=== PATIENT | female | born 1980 | race Caucasian/White ===

== ENCOUNTER → 2017-08-01 11:29 | Outpatient (CLI) | payer OTHER, SELFPAY ==
[2017-08-01 11:59] LABS: Ferritin 27 ng/mL (8-252); Iron 71 ug/dL (50-170)
== END ==
PROVIDERS: Family Provider Student in an Organized Health Care Education/Training Program; PCP Student in an Organized Health Care Education/Training Program; Visit Provider Obstetrics & Gynecology
DX: R53.83 Other fatigue (principal)
CPT/HCPCS: 82728; 83540

== ENCOUNTER → 2018-06-11 11:43 | Outpatient (CLI) | payer OTHER, SELFPAY ==
[2018-06-05 11:09] VITALS: BMI 22.6
[2018-06-11 11:56] LABS: Magnesium 1.9 mg/dL (1.6-2.6)
== END ==
PROVIDERS: PCP Student in an Organized Health Care Education/Training Program; Visit Provider Internal Medicine Cardiovascular Disease
DX: I49.3 Ventricular premature depolarization (principal)
CPT/HCPCS: 83735

== ENCOUNTER → 2018-07-14 12:28 | Outpatient (CLI) | payer OTHER, SELFPAY ==
[2018-06-05 11:09] VITALS: BMI 22.6
--- NOTE | 2018-07-14 12:31 | STE_ITS ---
Reason For Study: PALPITATIONS, SOB Stress Results Protocol: Stress Echocardiogram Maximum Predicted HR: 184 bpm Target HR: 156 bpm % Maximum Predicted HR: 94 % DurationHeart Rate Stage (mm:ss) (bpm) BP Comment BASELINE 81 134/78 ANDREW PROTOCOL- STAGE 1 3:00 136 134/80 ANDREW PROTOCOL- STAGE 2 3:00 153 130/64 ANDREW PROTOCOL- STAGE 3 3:00 173 144/76SL SOB MY ASTHMA RECOVERY 86 118/68 Stress Duration: 9:00 mm:ss Maximum Stress HR: 173 bpm METS: 10 Baseline Echocardiogram Findings Stress Echo Wall motion Data Resting WM Intermediate WM Stress WM Resting Wall Motion Wall Motion Stress All segments Normal. All segments Hyperkinetic. Ejection Fraction 65 %. Ejection Fraction 75 %. Stress Results Heart rate response: appropriate Blood pressure response: normal resting BP - appropriate response Arrhythmias: none Functional capacity: good Stopped secondary to: dyspnea. EKG Data Baseline ECG: NSR. Peak exercise ECG: no obvious ECG changes. Symptoms with Stress No c/o chest discomfort or palpitations during exercise / recovery. Interpretation Summary Negative (adequate) Stress Echocardiogram Negative (adequate) ECG ETT Ordering Physician: Luciano Guzmán MD Referring Physician: LISA BULL Performed By: [place] RDCS, RVT
--- OUTSIDE RECORDS SUMMARY | 2018-09-15 16:16 | XMS RPT_ITS ---
:1980 Author Organization OHIP Support Name Relationship Address Phone MONIE CH Unavailable [address] + [place] [address] LINDSEY TONEY Unavailable [address] + [place] [address] [facility] Unavailable [address] + [place] [address] MONIE CH Unavailable [address] + [place] [address] LINDSEY TONEY Unavailable [address] + [place] [address] [facility] Unavailable [address] + [place] [address] Monie Ch Unavailable [address] + [place] [address] Lindsey Toney Unavailable [address] + [place] [address] [facility] Unavailable [address] + [place] [address] Monie Ch Unavailable [address] + [place] [address] YarelisLindsey alfred Unavailable [address] + [place] [address] [facility] Unavailable [address] + [place] [address] Monie Ch Unavailable [address] + [place] [address] Yarelisaubrie Lindsey Unavailable [address] + [place] [address] [facility] Unavailable [address] + [place] [address] Mesa, Monie Unavailable [address] + [place] [address] Lindsey Toney Unavailable [address] + [place] [address] [facility] Unavailable [address] + [place] [address] Jing, Monie Unavailable [address] + [place] [address] Lindsey Toney Unavailable [address] + [place] [address] [facility] Unavailable [address] + [place] [address] Jing, Monie Unavailable [address] + [place] [address] Lindsey Toney Unavailable [address] + [place] [address] [facility] Unavailable [address] + [place] [address] Mesa, Monie Unavailable [address] + [place] [address] Lindsey Toney Unavailable [address] + [place] [address] [facility] Unavailable [address] + [place] [address] Care Team Providers Name Role Phone CAPRICE SILVER (CN) Attending Unavailable Laurie Johnson Attending Unavailable Luciano Guzmán Attending Unavailable Gregory, Cedrick Referring Unavailable [facility] Employee Attending Unavailable Luciano Guzmán Attending Unavailable [facility] Primary Care Unavailable Luciano Guzmán Attending Unavailable Luciano Guzmán Referring Unavailable Bull, Cedrick Primary Care Unavailable Augusto Martinez Attending Unavailable Bull, Cedrick Referring Unavailable [facility] Employee Attending Unavailable Catina Leonardo Attending Unavailable Bull, Cedrick Primary Care Unavailable Catina Leonardo Referring Unavailable Luciano Guzmán Attending Unavailable Luciano Guzmán Referring Unavailable Bull, Cedrick Primary Care Unavailable PROBLEMS PROBLEMS DATE TYPE CONDITION / CODE ATTENDING STATUS SOURCE 06/11/2018 Unknown I49.3 - Ventricular Luciano Guzmán Active [place] [facility] I49.3(ICD-10) Repository 06/05/2018 Unknown R00.2 - Palpitations Luciano Guzmán Active [place] / R00.2(ICD-10) [facility] Repository 06/05/2018 Unknown R06.02 - Shortness Luciano Guzmán Active [place] [facility] R06.02(ICD-10) Hospital Repository 08/02/2017 Unknown R53.1 - Weakness / Jorden, Active [place] R53.1(ICD-10) [facility] Repository PROCEDURES PROCEDURES No Procedure Records FoundRESULTS RESULTS STRESS TEST ECHO W/O Observed: 07/14/2018 Status: F Source: [place] CONTRAST 8:37 PM [facility] REPOSITORY [facility] [address] [place] [address] Stress Test Echo w/o Contrast MR#: [id number] Acct: [id number] Name: JAZMYN CH Rep #: [id number] : 1980 37 From: Luciano uGzmán MD Primary Care: Cedrick Muñoz DO Status: REG CLI Ordering Dr: Luciano Guzmán MD Sex: F C Reason For Study: PALPITATIONS, SOB Stress Results Protocol: Stress Echocardiogram Maximum Predicted HR: 184 bpm Target HR: 156 bpm % Maximum Predicted HR: 94 % DurationHeart Rate Stage (mm:ss) (bpm) BP Comment BASELINE 81 134/78 BALJIT PROTOCOL- STAGE 1 3:00 136 134/80 BALJIT PROTOCOL- STAGE 2 3:00 153 130/64 BALJIT PROTOCOL- STAGE 3 3:00 173 144/76SL SOB MY ASTHMA RECOVERY 86 118/68 Stress Duration: 9:00 mm:ss Maximum Stress HR: 173 bpm METS: 10 Baseline Echocardiogram Findings Stress Echo Wall motion Data Resting WM Intermediate WM Stress WM Resting Wall Motion Wall Motion Stress All segments Normal. All segments Hyperkinetic. Ejection Fraction 65 %. Ejection Fraction 75 %. Stress Results Heart rate response: appropriate Blood pressure response: normal resting BP - appropriate response Arrhythmias: none Functional capacity: good Stopped secondary to: dyspnea. EKG Data Baseline ECG: NSR. Peak exercise ECG: no obvious ECG changes. Symptoms with Stress No c/o chest discomfort or palpitations during exercise / recovery. Interpretation Summary Negative (adequate) Stress Echocardiogram Negative (adequate) ECG ETT Ordering Physician: Luciano Gumzán MD Referring Physician: CEDRICK BULL Performed By: [place], MARKUSCS, RVT 07/14/182036 Date Luciano Guzmán MD CC: Cedrick Muñoz DO; Luciano Guzmán MD Date Dictated: 07/14/18 1243 Date Transcribed: 07/14/182036 Nsh Teacher: Signed MAGNESIUM Collected: 06/11/2018 Status: F Source: [place] 8:30 AM [facility] REPOSITORY TYPE CODE TESTS RESULT OUT OF RANGE REFERENCE UNITS LAB L501.5200 1.6-2.6 mg/dL Normal MG 1.9 Performed By: #### L501.5200 #### [facility] [address] [place], [address] BASIC METABOLIC Collected: 06/11/2018 Status: F Source: [place] PROFILE (BMP) 8:30 AM [facility] REPOSITORY TYPE CODE TESTS RESULT OUT OF RANGE REFERENCE UNITS LAB L501.0100 74-106 mg/dL Normal GLU 100 Result Comment: Fasting Glucose result from 100 to 125 mg/dL suggests IMPAIRED HOMEOSTASIS per A.D.A. criteria. Please note revised GLUCOSE reference range effective 2017. LAB L501.1000 7-18 mg/dL High BUN 19 LAB L501.1100 0.55-1.02 mg/dL Normal CREAT,SERUM 0.81 Result Comment: The validity of the calculated GFR AND GFRAA in patients over 70 years has not been determined. Clinical correlation is essential. LAB L501.1110 >60 mL/min Normal EST GFR 85 Result Comment: Non- GFR Calc LAB L501.1115 >60 mL/min Normal EST GFR - AA 103 Result Comment: GFR Calc LAB L501.1300 10-20 RATIO High BUN/CRE 23.5 LAB L501.2200 8.5-10.1 mg/dL CA Normal 8.7 LAB L501.5300 136-145 mmol/L NA Normal 140 LAB L501.5600 3.5-5.1 mmol/L K Normal 3.9 LAB L501.5900 98-107 mmol/L High CL 109 LAB L501.6100 21.0-32.0 mmol/L Normal CO2 24.0 LAB L501.6200 5-15 Normal GAP 7 Performed By: #### L500.2500, L500.4100, L501.9310, L501.9520, L506.0400 #### [facility] [address] [place], [address] LIPID PROFILE Collected: 06/11/2018 Status: F Source: [place] 8:30 AM [facility] REPOSITORY TYPE CODE TESTS RESULT OUT OF RANGE REFERENCE UNITS LAB L501.4900 200 mg/dL Normal CHOL 157 Result Comment: <200 mg/dL Desirable 200-240 mg/dL Borderline >240 mg/dL High Risk LAB L501.5000 mg/dL Normal TRIG 41 Result Comment: The drugs N-Acetylcysteine and Metamizole may falsely depress this assay. Serum Triglycerides Reference Interval Normal <150 mg/dL Borderline high 150 - 199 mg/dL High 200 - 499 mg/dL Very High > or = 500 mg/dL LAB L501.6400 mg/dL Normal HDL 68 Result Comment: The drugs N-Acetylcysteine and Metamizole may falsely depress this assay. Reference Range HDL <40 mg/dL Low HDL Cholesterol HDL >or= 60 mg/dL High HDL Cholesterol LAB L501.6500 0-130 mg/dL Normal LDL 81 LAB L501.6600 5-40 mg/dL Normal VLDL 8 Performed By: #### L500.2500, L500.4100, L501.9310, L501.9520, L506.0400 #### [facility] [address] [place], [address] T4 TOTAL, THYROXIN Collected: 06/11/2018 Status: F Source: [place] 8:30 AM [facility] REPOSITORY TYPE CODE TESTS RESULT OUT OF RANGE REFERENCE UNITS LAB L501.9310 4.8-13.9 ug/dL T4 Normal THYROXIN 6.9 Performed By: #### L500.2500, L500.4100, L501.9310, L501.9520, L506.0400 #### [facility] [address] [place], [address] THYROID STIM HORMONE Collected: 06/11/2018 Status: F Source: [place] (TSH) 8:30 AM [facility] REPOSITORY TYPE CODE TESTS RESULT OUT OF RANGE REFERENCE UNITS LAB L501.9520 0.358-3.74 uIU/mL Normal TSH 3.07 Performed By: #### L500.2500, L500.4100, L501.9310, L501.9520, L506.0400 #### [facility] [address] [place], [address] T4 FREE DIRECT Collected: 06/11/2018 Status: F Source: [place] 8:30 AM [facility] REPOSITORY TYPE CODE TESTS RESULT OUT OF RANGE REFERENCE UNITS LAB L506.0400 0.76-1.46 ng/dL Normal T4 FREE 0.93 DIRECT Performed By: #### L500.2500, L500.4100, L501.9310, L501.9520, L506.0400 #### [facility] [address] [place], [address] CARDIOLOGY VISIT Observed: 06/05/2018 Status: F Source: [place] REPORT 12:50 PM [facility] REPOSITORY [facility] [place] [address] OFFICE VISIT Date of Service: 06/05/18 MR#: [id number] Acct: [id number] Name: JAZMYN CH Rep #: [id number] : 1980 Provider: Luciano Guzmán MD Age/Sex: 37/F Location: [facility] Status: Signed HPI HPI Details: JAZMYN CH, is a 37 F who presents to the office today for Outpatient cardiovascular consultation based upon concerns of recurrent palpitations. She was previously evaluated as an outpatient in 2013. She has not been evaluated since that time. At that time she was being evaluated for concerns of palpitations and chest discomfort. She underwent a Holter monitor, a 30 day ambulatory event monitor, a transthoracic echocardiogram, and a stress echocardiogram. At that time her Holter monitor demonstrated underlying sinus rhythm with PACs and PVCs with no narrow wide complex runs. Her 30 day event monitor demonstrated occasional PVCs. Her transthoracic echocardiogram demonstrates the left ventricle to be normal with an LVEF of 60% with a mid cavitary false tendon with equivocal mitral valve prolapse with trivial MR and trivial TR. Her stress echocardiogram demonstrated she exercised for 12 minutes on the Baljit protocol achieving 99% predicted maximal heart rate with a peak blood pressure of 170/90 mmHg with no obvious dysrhythmias, no obvious ECG changes, and no echocardiographic evidence of inducible myocardial ischemia. She had no symptoms during her evaluation. Her exercise tolerance was considered excellent at that time. She continued with an observational approach. She notes that on May 26, 2018 she had recurrent palpitations. She felt her heart flip-flop . She had no near syncope or syncope. She had no obvious associated chest discomfort or difficulty breathing. She elected to arrange an outpatient cardiovascular followup appointment. Since that time she states she has had no recurrent palpitations. She has continued with her activity as tolerated. Today she had an ECG in the office. She was noted to be in sinus bradycardia with no acute ECG changes. This is not new for her. Also today in the office she had a cardiac murmur. In comparison to her previous examination from 2013 this appears to be without significant change. Intake Vital Signs06/05/18 Height 5 ft 4 in 06/05/18 Weight: 132 lb 06/05/18 Body Mass Index (BMI) 22.6 06/05/18 Blood Pressure 112/60 Intake Visit Reasons: palps/ SOB/ former pt 2013/ no current tests Allergies No Known Allergies Allergy (Verified 06/05/18 11:09) Medications Ibuprofen [Motrin] 600 mg PO Q6H PRN #60 tab 10/17/16 [Rx Confirmed 06/05/18] albuterol sulfate HFA 90 mcg/actuation aerosol inhaler 1 puff INHALATION Q6H PRN 06/05/18 [History Confirmed 06/05/18] ferrous sulfate 325 mg (65 mg iron) tablet 325 mg PO DAILY PRN 06/05/18 [History Confirmed 06/05/18] multivitamin tablet 1 tab PO DAILY 06/05/18 [History Confirmed 06/05/18] PFSH Medical History Shortness of breath (Acute) Palpitations (Acute) Asthma (Chronic) IBS (irritable bowel syndrome) (Chronic) Narcolepsy (Chronic) Surgical History History of left breast biopsy (Resolved) Family History Mother Narcolepsy Brother Aspergers' syndrome Grandfather Myocardial infarction CAD (coronary artery disease) Social History Smoking Status: Former smoker alcohol intake: never ROS Const Const: Positive for fatigue (increased, HX narcolepsy); negative for weakness, weight gain, weight loss, frequent falls or excessive sweating Eyes Eyes: Negative for change in vision, blurry vision or transient loss of vision ENT ENT: Negative for dizziness or balance problems Cardio Chest Pain: No Palpitations: Yes (last Friday, lasted most of the day) feels like its: other (flip flops), thumping Edema: None Muscle aches with walking: None Resp Respiratory: Positive for SOB with activity (last couple of months) and SOB at rest (last couple of months ) Additional Details: HX Asthma GI GI: Negative vomiting or vomiting blood/hematemesis : Negative for hematuria Musc Musc: Negative for balance problems, muscle aches/ myalgia, muscle weakness or joint pain Skin Skin: Negative non-healing lesions or rash Neuro Neuro: Positive for lightheadedness (once in a blue dominguez, anytime); negative for weakness, blurry vision, dizziness, frequent falls or orthostatic symptoms Mauricio Hematologic/Lymphatic: Negative for easy bleeding Endo Endo: Positive for fatigue (increased, HX narcolepsy); negative for excessive sweating Psych Psych: Negative for anxiety or depression Allergy Allergy/Immunology: Negative for hives, Negative for rash Cardiology Exam Const Appearance: cooperative, healthy appearing, comfortable, no acute distress, well developed and well groomed Nutritional Appearance: thin Orientation: alert, awake and oriented x3 Head Head: normal to inspection, normocephalic and atraumatic Ears: hearing grossly normal bilaterally Nose: external nose normal Face and Sinus: face symmetric Mouth: oral mucosae normal Teeth and gingiva: fair dentition Eyes Eyelids: eyelids normal Conjunctivae: conjunctivae normal Pupils: PERRL EOM: EOM intact bilaterally Neck Neck: normal visual inspection and full ROM Carotids: normal carotid upstroke Chest Chest inspection: normal inspection of the chest, symmetric chest movement and normal respiratory effort Auscultation: Bilateral: Clear to Auscultation Cardio Palpation: normal PMI Rate: regular rate Rhythm: regular rhythm Heart sounds: S1 normal and S2 normal Murmur: Grade 2/6, soft, mid systolic, LLSB and LVOT GI GI: normal to inspection, bowel sounds diminished and soft Neuro General: alert, awake, oriented x3, moves all extremities, no focal sensory deficit and no focal motor deficits Skin Skin: no rashes or lesions noted Extremities Pulses: Normal: Right Femoral Pulse, Left Femoral Pulse, Right Dorsalis Pedis Pulse, Left Dorsalis Pedis Pulse, Right Posterior Tibial Pulse, Left Posterior Tibial Pulse, Right Radial Pulse, Left Radial Pulse Psych Psychological: normal affect Assessment AND Plan 1. Palpitations R00.2 Plan At the present time it is unclear as to whether her palpitations have been related to her history of PACs or PVCs. At the same time she has subsequently been placed on a 30 day ambulatory event monitor. Based upon her recordings as far she has had sinus rhythm with sinus bradycardia, sinus tachycardia, and an intermittent episode appearing compatible of 2nd degree AV block type 1 Wenckebach. It does not appear that there were any obvious events and/or symptoms associated with these findings thus far. At the present time she will be further assessed with respect to her underlying electrolytes as metabolic profile. She will continue her 30 day ambulatory event monitor. It was not felt she required additional diagnostic studies are therapeutic intervention at this time. She will have a future outpatient cardiovascular followup to reassess her status. Orders Orders: 2. PVC (premature ventricular contraction) I49.3 Plan Again she has an underlying history of PACs and PVCs. She may be sensing compensatory pauses. She will continue evaluation care as noted above. Orders Orders: 3. Wenckebach I44.1 Plan She has been found to have evidence of underlying second-degree AV block type 1 Wenckebach. However based on her recordings as far there is no definitive correlation with them. She will continue evaluation care as noted above. Plan Detail Other Orders Orders: Other Medications New: Additional Comments Thank you for allowing me to participate in the care of your patient. Please don't hesitate to call if any issues arise. This note was generated using a voice recognition system and there may be incorrect words, spelling or punctuation that were not noted when reviewing the office note prior to saving. Follow Up 6 Weeks (PFM) Coding Level of Care Code Off vis,new,level 3 Diagnoses Palpitations R00.2 PVC (premature ventricular contraction) I49.3 Wenckebach I44.1 Coding Level of Care Code Off vis,new,level 3 Diagnoses Palpitations R00.2 PVC (premature ventricular contraction) I49.3 Wenckebach I44.1 06/05/18 1250 <Electronically signed by Luciano Guzmán MD> Date Luciano Guzmán MD Cosigner Signature: Date (if applicable) CC: Cedrick Muñoz DO 12 LEAD EKG PERFORMED Observed: 06/05/2018 Status: F Source: [place] [facility] 11:06 AM [facility] REPOSITORY [facility] [address] [place] [address] 12 Lead EKG performed by [facility] 06/05/18 1105 MR#: [id number] Acct: [id number] Name: JAZMYN CH Magaly Rep #: [id number] : 1980 37 From: Luciano Guzmán MD Attending Dr: Luciano Guzmán MD Status: DEP AMB Ordering Dr: Luciano Guzmán MD Date: 06/05/18 Location: [facility] Sex: F C Admitted: BMS/12 Lead EKG performed by [facility] ECG Report Interpretation Sinus Bradycardia Electronically signed on 06/05/2018 at 17:45 by Luciano Guzmán Software Version [id number] 06/05/18 1746 Date Luciano Guzmán MD CC: Cedrick Muñoz, Date Dictated: 06/05/181104 Date Transcribed: 06/05/181104 Nsh Teacher: PM Signed PROGRESS Observed: 05/27/2018 Status: COMPLETED Source: [place] 2:16 PM [facility] HNO ID: [id number] Author: Renzo John LPN Service: (none) Author Type: (none) Type: Progress Notes Filed: 05/27/2018 3:02 PM Note Text: Pt presents for blood pressure check, had a holter monitor placed today per Dr Guzmán. Pt requesting a check of vitals. Renzo John LPN CNNURSE Observed: 05/27/2018 Status: COMPLETED Source: [place] 2:00 PM [facility] REPOSITORY Nurse Visit (ROSANGELA) JAZMYN CH ([id number]) 1980 F Date Time Provider Department 05/27/18 2:00 PM IN NURSE ROSANGELA During your visit today, we recorded the following information about you: Temperature Pulse Respiration Blood pressure 97.8 degrees 60/minute 16/minute 100/72 Weight 59 kg Renzo John LPN 05/27/2018 3:02 PM Signed Pt presents for blood pressure check, had a holter monitor placed today per Dr Guzmán. Pt requesting a check of vitals. Renzo John LPN Referring Provider: SELF [200] Allergies As of Date: 05/27/2018 (No Known Allergies) Date Reviewed: 05/27/2018 Reviewed by: Renzo John LPN - Fully Assessed Reason for Visit: Blood Pressure Check [195] Visit Diagnosis:Palpitations [R00.2] Prescriptions as of 05/27/2018 Sig: MULTIVITAMIN ORAL Take by mouth. IRON (FERROUS SULFATE) ORAL Take 18 mg by mouth. ALBUTEROL SULFATE HFA 90 MCG/* Inhale 2 Puffs as instructed * POLYMYXIN B SULFATE 10,000 UN* Use 1 Drop in both eyes every* NORETHINDRONE (CONTRACEPTIVE)* Take 1 tablet by mouth once d* Patient not taking: Reported on 12/09/2017 VITAMIN,CALCIUM,MINE* Take 1 tablet by mouth. FLUTICASONE 100 MCG-SALMETERO* Inhale 1 Puff as instructed t* TRETINOIN 0.025 % TOPICAL CRE* Apply thin layer to entire ac* Problem List As Of Date 05/27/2018 Noted Resolved SUPERVIS NORMAL 1ST PREG [Z34.00] INVALID FOR*08/05/2006 Acne [L70.9] INVALID FOR*11/01/2009 Sebaceous Cyst [L72.3] INVALID FOR*11/01/2009 Seborrhea [L21.9] INVALID FOR*08/06/2012 Scar and Fibrosis of Skin: Acne-related [L90.5]INVALID FOR*08/06/2012 Xerosis cutis [L85.3] INVALID FOR*08/06/2012 Contact dermatitis and other eczema due to othe*INVALID FOR*07/03/2011 Sebaceous cyst [L72.3] INVALID FOR*08/06/2012 Keratosis pilaris [L85.8] INVALID FOR*08/06/2012 KAUSHAL III with severe dysplasia [D06.9] INVALID FOR*05/09/2016 Seborrheic Dermatitis [L21.8] INVALID FOR*08/06/2012 Potential Irritant Contact dermatitis and other*INVALID FOR*08/06/2012 Pelvic cramping [R10.2] INVALID FOR*05/09/2016 Complex ovarian cyst [N83.299] INVALID FOR*05/09/2016 History of depression [Z86.59] INVALID FOR* More... History of asthma [Z87.09] INVALID FOR* More... Patient requested diagnostic testing [Z01.89] INVALID FOR*05/09/2016 More... Rubella non-immune status, antepartum [O99.89, *INVALID FOR*12/09/2017 Encounter for supervision of other normal pregn*INVALID FOR*12/09/2017 More... Follow-up and Disposition History Recorded Encounter Status:Closed by RENZO JOHN LPN on 05/27/18 PROGRESS Observed: 12/09/2017 Status: COMPLETED Source: [place] 2:49 PM [facility] HNO ID: [id number] Author: Caprice Terrazas) Gustavo Service: (none) Author Type: Reversing Mill Roller Type: Progress Notes Filed: 12/09/2017 3:30 PM Note Text: Jazmyn Ch is a 36 year old who presents for her annual gynecologic exam without complaints. Menses: 2 cycles since delivery in 09/2016, cycles every 90 days and 5-7 days of flow. Contraception: none - patient's considering a vasectomy HPV vaccine: N/A Last Pap: 2015 normal HPV: negative History of abnormal pap: No Last mammogram: 2013normal - fibrocystic breast tissue noted, biopsy done. Plan for mammograms starting age 41 Sexually active: Yes History of STDS: None Patient concerns for STD exposure: No. Pain with intercourse: No Postcoital bleeding: No Exercise: 5 times a week for 30-60 minutes. Type: Walking, Running, Yoga Diet: Regular Diet Seatbelt use: Yes Obstetric History T2 L2 SAB1 TAB0 Ectopic0 Multiple0 Live Births2 Comment: G1 RR delivered Hossein G2 early SAB, no DANDC PAST MEDICAL HISTORY Diagnosis Date - Abnormal glandular Papanicolaou smear of cervix Abn. 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, not currently using while - Panic disorder without agoraphobia - Presence of intrauterine contraceptive device Mirena - Roseola infantum, unspecified PAST SURGICAL HISTORY Procedure Laterality Date - COLONOSCOP W/ OR W/O BRSH SPEC 01/05/2014 Colonoscopy - COLPOSCOPY (VAGINOSCOPY) Colposcopy - PAST SURGICAL HISTORY OF left breast biopsy - PAST SURGICAL HISTORY OF wisdom teeth ext FAMILY HISTORY Problem Relation Age of Onset - Arthritis Mother - Osteoporosis Mother - narcolepsy [OTHER] Mother - thyroid problem [OTHER] Mother unsure if hypo or hyperthyroidism; FNA in 2002 for mass - benign - Heart Maternal Grandmother - Breast Cancer Maternal Grandmother 60 at 64 - Heart Maternal Grandfather - Heart Paternal Grandmother - Heart Paternal Grandfather - Developmental problem Maternal Aunt - Breast Cancer Maternal Aunt 41 SOCIAL HISTORY Social History Substance Use Topics - Smoking status: Former Smoker Packs/day: 1.00 Years: 10.00 Types: Cigarettes Quit date: 12/26/2005 - Smokeless tobacco: Former User Types: Chew Quit date: 12/26/2005 - Alcohol use No REVIEW OF SYSTEMS Abdomen: No abdominal pain, nausea, vomiting, diarrhea, or constipation. No bloating, early satiety, indigestion, or increased flatulence. Bladder: No dysuria, gross hematuria, urinary frequency, urinary urgency, or incontinence. Breast: No breast lumps, nipple d/c, overlying skin changes, redness or skin retraction. Allergies and current medication updated:Yes EXAM: BP 108/64 Ht 5' 4.567 (1.64m) Wt 123 lb 12.8 oz (56.2kg) BMI 20.88 kg/(m2). GENERAL: pleasant, female in no apparent distress HEENT: Normocephalic, atraumatic, mucus membranes moist and no lesions NECK: Supple, full range of motion, no adenopathy and thyroid normal DERMATOLOGY: Normal, without lesions, non-icteric and non-hirsute BREAST: soft, non-tender, symmetric, no dominant mass, normal nipple-areolar complex, no lymphadenopathy and no nipple discharge CHEST: Normal inspiratory effort ABDOMEN: soft, non-tender and no masses PELVIC: external genitalia normal, normal Bartholin's glands, urethra, [place]'s glands, no vulvar lesions, no cervical lesions, good vaginal support, physiologic discharge present, normal appearing perineal body and perianal region. Small <1cm raised vulvar skin tag noted BIMANUAL: uterus normal size, shape and consistency, no adnexal masses and non-tender RECTOVAGINAL: deferred. NEURO: alert and oriented x3,exam grossly non-focal EXTREMITIES: normal ASSESSMENT/PLAN: 1) Health maintenance: Pap/HPV up to date. Mammogram starting age 40. Nutrition, exercise and routine health maintenance exams reviewed. Calcium/Vitamin D supplementation information provided. Smoking cessation: Patient does not smoke. Lipids/glucose: followed by PCP Vitamin D: followed by PCP HPV vaccine: N/A Patient has pending appt with Dermatology to remove vulvar skin tag 2) Contraception: none. Contraceptive options reviewed and information provided. Patient planning vasectomy. 3) STD screening: Declined STD check. 4) Follow up one year or sooner as needed Caprice Silver APRN.CNM CNOV Observed: 12/09/2017 Status: COMPLETED Source: GRAY 2:45 PM [facility] REPOSITORY Office Visit (WOOB) JINGJAZMYN ([id number]) 1980 F Date Time Provider Department 12/09/17 2:45 PM CAPRICE SILVER (CONSTANZA) WOOB During your visit today, we recorded the following information about you: Blood pressure Weight Height 108/64 56.2 kg 1.64 m Caprice Silver APRN.CNM 12/09/2017 3:30 PM Signed Jazmyn Mckenzie Jing is a 36 year old who presents for her annual gynecologic exam without complaints. Menses: 2 cycles since delivery in 09/2016, cycles every 90 days and 5-7 days of flow. Contraception: none - patient's considering a vasectomy HPV vaccine: N/A Last Pap: 2015 normal HPV: negative History of abnormal pap: No Last mammogram: 2013normal - fibrocystic breast tissue noted, biopsy done. Plan for mammograms starting age 40 Sexually active: Yes History of STDS: None Patient concerns for STD exposure: No. Pain with intercourse: No Postcoital bleeding: No Exercise: 5 times a week for 30-60 minutes. Type: Walking, Running, Yoga Diet: Regular Diet Seatbelt use: Yes Obstetric History T2 L2 SAB1 TAB0 Ectopic0 Multiple0 Live Births2 Comment: G1 RR delivered Hossein G2 early SAB, no DANDC PAST MEDICAL HISTORY Diagnosis Date - Abnormal glandular Papanicolaou smear of cervix Abn. 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, not currently using while - Panic disorder without agoraphobia - Presence of intrauterine contraceptive device Mirena - Roseola infantum, unspecified PAST SURGICAL HISTORY Procedure Laterality Date - COLONOSCOP W/ OR W/O [facility] SPEC 01/05/2014 Colonoscopy - COLPOSCOPY (VAGINOSCOPY) Colposcopy - PAST SURGICAL HISTORY OF left breast biopsy - PAST SURGICAL HISTORY OF wisdom teeth ext FAMILY HISTORY Problem Relation Age of Onset - Arthritis Mother - Osteoporosis Mother - narcolepsy [OTHER] Mother - thyroid problem [OTHER] Mother unsure if hypo or hyperthyroidism; FNA in 2002 for mass - benign - Heart Maternal Grandmother - Breast Cancer Maternal Grandmother 60 at 64 - Heart Maternal Grandfather - Heart Paternal Grandmother - Heart Paternal Grandfather - Developmental problem Maternal Aunt - Breast Cancer Maternal Aunt 41 SOCIAL HISTORY Social History Substance Use Topics - Smoking status: Former Smoker Packs/day: 1.00 Years: 10.00 Types: Cigarettes Quit date: 12/26/2005 - Smokeless tobacco: Former User Types: Chew Quit date: 12/26/2005 - Alcohol use No REVIEW OF SYSTEMS Abdomen: No abdominal pain, nausea, vomiting, diarrhea, or constipation. No bloating, early satiety, indigestion, or increased flatulence. Bladder: No dysuria, gross hematuria, urinary frequency, urinary urgency, or incontinence. Breast: No breast lumps, nipple d/c, overlying skin changes, redness or skin retraction. Allergies and current medication updated:Yes EXAM: BP 108/64 Ht 5' 4.567 (1.64m) Wt 123 lb 12.8 oz (56.2kg) BMI 20.88 kg/(m2). GENERAL: pleasant, female in no apparent distress HEENT: Normocephalic, atraumatic, mucus membranes moist and no lesions NECK: Supple, full range of motion, no adenopathy and thyroid normal DERMATOLOGY: Normal, without lesions, non-icteric and non-hirsute BREAST: soft, non-tender, symmetric, no dominant mass, normal nipple-areolar complex, no lymphadenopathy and no nipple discharge CHEST: Normal inspiratory effort ABDOMEN: soft, non-tender and no masses PELVIC: external genitalia normal, normal Bartholin's glands, urethra, [place]'s glands, no vulvar lesions, no cervical lesions, good vaginal support, physiologic discharge present, normal appearing perineal body and perianal region. Small <1cm raised vulvar skin tag noted BIMANUAL: uterus normal size, shape and consistency, no adnexal masses and non-tender RECTOVAGINAL: deferred. NEURO: alert and oriented x3,exam grossly non-focal EXTREMITIES: normal ASSESSMENT/PLAN: 1) Health maintenance: Pap/HPV up to date. Mammogram starting age 40. Nutrition, exercise and routine health maintenance exams reviewed. Calcium/Vitamin D supplementation information provided. Smoking cessation: Patient does not smoke. Lipids/glucose: followed by PCP Vitamin D: followed by PCP HPV vaccine: N/A Patient has pending appt with Dermatology to remove vulvar skin tag 2) Contraception: none. Contraceptive options reviewed and information provided. Patient planning vasectomy. 3) STD screening: Declined STD check. 4) Follow up one year or sooner as needed MARCELINA Alcaraz APRN.CNM 12/09/2017 3:30 PM Signed ACOG Screening Guidelines (2015) The following health screening schedule is recommended by the [employer] (ACOG). Some of these tests may be ordered or performed by your primary care doctor. Pap test screening The pap test looks at cells on the cervix (the opening from the vagina to the uterus) to look for cancer or pre-cancerous changes. These changes are caused by the human papillomavirus (HPV). Studies estimate that half of all women will test positive for this virus within 3 years of starting sexual activity. For young women with a normal immune system, 90% of HPV infections will resolve within 2 years. There is a vaccine available against some forms of HPV. This is recommended for girls and women age 9-26 and is a series of 3 injections over 6 months. Because this vaccine does not protect against all HPV types which can cause cervical cancer, women who received the vaccine still need pap tests. Pap smear screening should be started at age 21. The pap test should be done every 3 years from age 21-29. From age 30-65, pap smears can be done every 5 years if HPV test is negative or every 3 years if HPV testing is not done. For women over the age of 65, ACOG recommends against screening women who have had adequate prior screening and are not otherwise at high risk for cervical cancer. Women who have had a hysterectomy also do not need routine pap smear screening unless the pap smear was done for a cervical cancer or moderate to severe dysplasia. Breast cancer screening Mammogram should be performed every 1-2 years starting at age 40 and every year starting at age 50. Screening may be started earlier depending on family history. Cholesterol screening Lipid panel (cholesterol test) should be checked every 5 years starting at age 45. Diabetes screening Fasting glucose (blood sugar) test should be performed every 3 years starting at age 45. Colorectal cancer screening Starting at age 50, women should have a screening colonoscopy at least every 10 years. Screening may be started earlier depending on family history. Thyroid screening Thyroid function test (TSH) should be checked every 5 years starting at age 50. Bone mineral density screening All postmenopausal women age 65 and over and postmenopausal women with risk factors for osteoporosis should have a bone mineral density test performed. Risk factors include race, family history of osteoporosis, personal history of fractures, poor nutrition, smoking, heavy alcohol use, early menopause, low calcium intake and low body weight. Certain medical conditions and long-term use of some medications may also increase risk. Referring Provider: SELF [200] Allergies As of Date: 12/09/2017 (No Known Allergies) Date Reviewed: 12/09/2017 Reviewed by: Corrine Zafar Ma - Fully Assessed Primary Visit Diagnosis:Encounter for gynecological examination (general) (routine) without abnormal findings [Z01.419] Prescriptions as of 12/09/2017 Sig: POLYMYXIN B SULFATE 10,000 UN* Use 1 Drop in both eyes every* NORETHINDRONE (CONTRACEPTIVE)* Take 1 tablet by mouth once d* Patient not taking: Reported on 12/09/2017 IRON (FERROUS SULFATE) ORAL Take 18 mg by mouth. VITAMIN,CALCIUM,MINE* Take 1 tablet by mouth. ALBUTEROL SULFATE HFA 90 MCG/* Inhale 2 Puffs as instructed * FLUTICASONE 100 MCG-SALMETERO* Inhale 1 Puff as instructed t* TRETINOIN 0.025 % TOPICAL CRE* Apply thin layer to entire ac* Medication notes this encounter POLYMYXIN B SULFATE 10,000 UNIT-TRIMETHOPRIM 1 MG/ML EYE DROPS >> Corrine Zafar Ma 12/09/2017 2:53 PM >> CORRINE ZAFAR MA Dec 09, 2017 2:53 PM Pt no longer taking Problem List As Of Date 12/09/2017 Noted Resolved SUPERVIS NORMAL 1ST PREG [Z34.00] INVALID FOR*08/05/2006 Acne [L70.9] INVALID FOR*11/01/2009 Sebaceous Cyst [L72.3] INVALID FOR*11/01/2009 Seborrhea [L21.9] INVALID FOR*08/06/2012 Scar and Fibrosis of Skin: Acne-related [L90.5]INVALID FOR*08/06/2012 Xerosis cutis [L85.3] INVALID FOR*08/06/2012 Contact dermatitis and other eczema due to othe*INVALID FOR*07/03/2011 Sebaceous cyst [L72.3] INVALID FOR*08/06/2012 Keratosis pilaris [L85.8] INVALID FOR*08/06/2012 KAUSHAL III with severe dysplasia [D06.9] INVALID FOR*05/09/2016 Seborrheic Dermatitis [L21.8] INVALID FOR*08/06/2012 Potential Irritant Contact dermatitis and other*INVALID FOR*08/06/2012 Pelvic cramping [R10.2] INVALID FOR*05/09/2016 Complex ovarian cyst [N83.299] INVALID FOR*05/09/2016 History of depression [Z86.59] INVALID FOR* More... History of asthma [Z87.09] INVALID FOR* More... Patient requested diagnostic testing [Z01.89] INVALID FOR*05/09/2016 More... Rubella non-immune status, antepartum [O99.89, *INVALID FOR*12/09/2017 Encounter for supervision of other normal pregn*INVALID FOR*12/09/2017 More... Other instructions from your clinician: ACOG Screening Guidelines (2015) The following health screening schedule is recommended by the [employer] (ACOG). Some of these tests may be ordered or performed by your primary care doctor. Pap test screening The pap test looks at cells on the cervix (the opening from the vagina to the uterus) to look for cancer or pre-cancerous changes. These changes are caused by the human papillomavirus (HPV). Studies estimate that half of all women will test positive for this virus within 3 years of starting sexual activity. For young women with a normal immune system, 90% of HPV infections will resolve within 2 years. There is a vaccine available against some forms of HPV. This is recommended for girls and women age 9-26 and is a series of 3 injections over 6 months. Because this vaccine does not protect against all HPV types which can cause cervical cancer, women who received the vaccine still need pap tests. Pap smear screening should be started at age 21. The pap test should be done every 3 years from age 21-29. From age 30-65, pap smears can be done every 5 years if HPV test is negative or every 3 years if HPV testing is not done. For women over the age of 65, ACOG recommends against screening women who have had adequate prior screening and are not otherwise at high risk for cervical cancer. Women who have had a hysterectomy also do not need routine pap smear screening unless the pap smear was done for a cervical cancer or moderate to severe dysplasia. Breast cancer screening Mammogram should be performed every 1-2 years starting at age 40 and every year starting at age 50. Screening may be started earlier depending on family history. Cholesterol screening Lipid panel (cholesterol test) should be checked every 5 years starting at age 45. Diabetes screening Fasting glucose (blood sugar) test should be performed every 3 years starting at age 45. Colorectal cancer screening Starting at age 50, women should have a screening colonoscopy at least every 10 years. Screening may be started earlier depending on family history. Thyroid screening Thyroid function test (TSH) should be checked every 5 years starting at age 50. Bone mineral density screening All postmenopausal women age 65 and over and postmenopausal women with risk factors for osteoporosis should have a bone mineral density test performed. Risk factors include race, family history of osteoporosis, personal history of fractures, poor nutrition, smoking, heavy alcohol use, early menopause, low calcium intake and low body weight. Certain medical conditions and long-term use of some medications may also increase risk. Disposition: Return in 1 year (on 12/09/2018), or if symptoms worsen or fail to improve, for Annual Exam. Follow-up and Disposition History Recorded Encounter Status:Closed by CAPRICE SILVER CNM on 12/09/17 CBC W/DIFF, AUTOMATED Collected: 08/01/2017 Status: F Source: [place] 9:30 AM [facility] REPOSITORY TYPE CODE TESTS RESULT OUT OF RANGE REFERENCE UNITS LAB L100.1000 4.4-11.0 K/mm3 Low WBC 3.8 LAB L100.1200 4.2-5.4 M/mm3 Low RBC 4.14 LAB L100.1300 12.0-15.0 g/dl Normal HGB 12.5 LAB L100.1400 37-47 % Normal HCT 38.3 LAB L100.1500 81-99 fL Normal MCV 92.5 LAB L100.1600 27.0-32.0 pg Normal MCH 30.2 LAB L100.1700 32-36 g/gl Normal MCHC 32.6 LAB L100.1810 11.6-14.6 % Normal RDW CV 13.3 LAB L100.1820 35.1-43.9 fl High RDW SD 44.3 LAB L100.1900 150-450 K/mm3 Low PLT 138 LAB L100.2000 6.2-12.0 fl Normal MPV 10.7 LAB L100.2100 47-70 % Normal NEUT% 58.3 LAB L100.2200 19-41 % Normal LY% 29.4 LAB L100.2300 0-10 % Normal MONO% 9.9 LAB L100.2400 0-5 % Normal EO% 1.8 LAB L100.2500 0-1 % Normal BASO% 0.3 LAB L100.2550 0.0-0.9 % Normal IM GRAN % 0.300 Result Comment: IG% - Immature Granulocytes (promyelocytes, myelocytes and metamyelocytes) > 1% indicates that a LEFT SHIFT is Present. LAB L100.2620 2.0-7.7 X10 3/uL Normal Absolute Neut 2.2 LAB L100.2720 0.83-4.51 X10 3/ul Normal Absolute Lymph 1.13 Performed By: #### L100.0100 #### [facility] [address] [place], [address] BASIC METABOLIC Collected: 08/01/2017 Status: F Source: [place] PROFILE (BMP) 9:30 AM [facility] REPOSITORY TYPE CODE TESTS RESULT OUT OF RANGE REFERENCE UNITS LAB L501.0100 74-106 mg/dL High GLU 119 Result Comment: Fasting Glucose result from 100 to 125 mg/dL suggests IMPAIRED HOMEOSTASIS per A.D.A. criteria. Please note revised GLUCOSE reference range effective 2017. LAB L501.1000 7-18 mg/dL High BUN 19 LAB L501.1100 0.55-1.02 mg/dL Normal CREAT,SERUM 0.92 Result Comment: The validity of the calculated GFR AND GFRAA in patients over 70 years has not been determined. Clinical correlation is essential. LAB L501.1110 >60 mL/min Normal EST GFR 73 Result Comment: Non- GFR Calc LAB L501.1115 >60 mL/min Normal EST GFR - AA 89 Result Comment: GFR Calc LAB L501.1300 10-20 RATIO High BUN/CRE 20.6 LAB L501.2200 8.5-10.1 mg/dL CA Normal 9.0 LAB L501.5300 136-145 mmol/L NA Normal 143 LAB L501.5600 3.5-5.1 mmol/L K Normal 3.6 LAB L501.5900 98-107 mmol/L CL Normal 106 LAB L501.6100 21.0-32.0 mmol/L Normal CO2 28.0 LAB L501.6200 5-15 Normal GAP 9 Performed By: #### L500.2500 #### [facility] [address] [place], [address] IRON Collected: 08/01/2017 Status: F Source: [place] 9:30 AM [facility] REPOSITORY TYPE CODE TESTS RESULT OUT OF RANGE REFERENCE UNITS LAB L503.6150 50-170 ug/dL Normal IRON 71 Performed By: #### L503.6150, L503.6550 #### [facility] [address] [place], [address] FERRITIN Collected: 08/01/2017 Status: F Source: [place] 9:30 AM [facility] REPOSITORY TYPE CODE TESTS RESULT OUT OF RANGE REFERENCE UNITS LAB L503.6550 8-252 ng/mL Normal FERRITIN 27 Performed By: #### L503.6150, L503.6550 #### [facility] [address] [place], [address] VITAMIN D,25 HYDROXY Collected: 08/01/2017 Status: F Source: [place] 9:30 AM [facility] REPOSITORY TYPE CODE TESTS RESULT OUT OF RANGE REFERENCE UNITS LAB L506.1000 19.95-100.01 ng/mL Normal Vitamin D 26.0 25-OH Result Comment: Vitamin D 25(OH) Status Range Deficiency <20 ng/mL (50nmol/L) Insuffciency 20 - 30 ng/mL (50 - 75 nmol/L) Sufficiency 30 - 100 ng/mL (75 - 250 nmol/L) Toxicity >100 ng/mL (>250 nmol/L) Performed By: #### L506.1000 #### [facility] [address] [place], [address] ALLERGIES ALLERGIES DATE TYPE / CODE NAME / CODE REACTION SEVERITY SOURCE 07/17/2018 Drug No Known Unknown [facility] Allergy/416 Allergies/Z80253 Hospital 637991(SNOM 0388(RXNORM) Repository ED CT) Drug NO KNOWN [facility] Class/01587 ALLERGIES [facility] 1003(SNOMED Repository CT) ENCOUNTERS ENCOUNTERS ADMIT/DISCHARGE ACCOUNT ADMITTING ENCOUNTER LOCATION SOURCE NUMBER CLASS 07/17/2018/07/17/19 [id number] Ambulatory BMSBuilding:B [place] 19 MS[facility] Repository 07/14/2018 [id number] Ambulatory [facility] ing:CVS Repository 06/11/2018 [id number] Ambulatory [facility] ing:LABSPEC Repository 06/11/2018 [id number] Ambulatory [facility] ing:OLS.[facility] Repository 06/05/2018/06/05/20 [id number] Ambulatory BMSBuilding:B [place] [address] MS.[facility] Repository 06/03/2018 [id number] Ambulatory BMSBuilding:B [place] MS.[facility] Repository 05/27/2018/05/28/20 [id number] Ambulatory [address] Repository 05/27/2018 [id number] [facility] ing:CVS Repository 12/09/2017/12/12/19 [id number] Ambulatory [address] Repository 08/01/2017 [id number] [facility] ing:LABSPEC Repository 08/01/2017 [id number] [facility] ing:OLS.[facility] Repository PAYERS PAYERS ENCOUNTER GUARANTOR PAYER SUBSCRIBER SOURCE 07/17/2018 JAZMYN D Primary JAZMYN D [place] [id number] Insurance:AETNAPolicy CORNELIUSDOB: [facility], Number: [id number] [facility] [address]Hnv: [id number] Repository Date:9393-32-72[address] () [address], [place] [address]HZ: 07/17/2018 Secondary NOT GIVENUNK [place] Insurance:SELF PAY [facility] Number: Effective Repository Date:2018-06-25 07/14/2018 JAZMYN D Primary JAZMYN D [place] [id number] Insurance:AETNAPolicy CORNELIUSDOB: [facility], Number: [id number] Memorial Hospital [address]Yey: [id number] Repository Date:9030-99-24[address] ( [address], [place] [address]WL: 07/14/2018 Secondary NOT GIVENUNK [place] Insurance:SELF PAY [facility] Number: Effective Repository Date:2018-07-06 06/11/2018 JAZMYN D Primary JAZMYN D [place] [id number] Insurance:AETNAPolicy CORNELIUSDOB: [facility], Number: [id number] Memorial Hospital [address]Mar: [id number] Repository Date:0518-93-11LG [address] () [id number] JOSSUE KEVIN [address]SQ: 06/11/2018 Secondary NOT GIVENUNK [place] Insurance:SELF PAY [facility] Number: Effective Repository Date:2018-06-11 06/11/2018 JAZMYN D Primary NOT GIVENUNK [place] [id number] Insurance:SELF PAY [facility] [address]Gpo: Number: Effective Repository Date:2018-06-11 () 06/05/2018 JAZMYN D Primary JAZMYN D [place] [id number] Insurance:AETNAPolicy CORNELIUSDOB: [facility], Number: [id number] Memorial Hospital [address]Eck: [id number] Repository Date:5120-06-35ZJ [address] () [id number] JOSSUE KEVIN [address]MG: 06/05/2018 Secondary NOT GIVENUNK [place] Insurance:SELF PAY [facility] Number: Effective Repository Date:2018-06-05 06/03/2018 Jazmyn D Primary Jazmyn D [place] [id number] Insurance:AETNAPolicy [facility] Number: [id number] Memorial Hospital [address]Omr: [id number] Repository Date:0800-32-53YZ [address] () [id number] [address]DM: 06/03/2018 Secondary NOT GIVENUNK [place] Insurance:SELF PAY [facility] Number: Effective Repository Date:2018-06-03 05/27/2018 Jazmyn D Primary NOT GIVENUNK [place] [id number] Insurance:SELF PAY [facility] [address]Mmh: Number: Effective Repository Date:2018-05-27 () 08/01/2017 Jazmyn D Primary Jazmyn D [place] [id number] Insurance:AETNAPolicy [facility], Number: [id number] Memorial Hospital [address]Zza: [id number] Repository Date:7402-71-72OS [address] () [address]FRJOSSUE GOLDBERG [address]DH: 08/01/2017 Secondary NOT GIVENUNK [place] Insurance:SELF PAY [facility] Number: Effective Repository Date:2017-08-01 08/01/2017 Jazmyn D Primary NOT GIVENUNK [place] [id number] Insurance:SELF PAY [facility] [address]Shk: Number: Effective Repository Date:2017-08-01 ()
== END ==
LOC: CVS 12:29
PROVIDERS: Family Provider Student in an Organized Health Care Education/Training Program; PCP Student in an Organized Health Care Education/Training Program; Referring Provider Internal Medicine Cardiovascular Disease; Visit Provider Internal Medicine Cardiovascular Disease
DX: R00.2 Palpitations (principal); R06.02 Shortness of breath
CPT/HCPCS: 93017; 93350

== ENCOUNTER → 2019-05-25 07:57 | Outpatient (CLI) | payer OTHER, SELFPAY ==
[2018-07-17 16:44] VITALS: BMI 22.6
--- NOTE | 2019-05-25 08:00 | VDLE_ITS ---
Reason For Study: PAIN RIGHT LEFT GSV is normal. GSV is normal. CFV is compressible, spontaneous, phasic, CFV is compressible, spontaneous, phasic, competent and demonstrates normal competent, and demonstrates normal augmentation. augmentation. FV is compressible, spontaneous, phasic, FV is compressible, spontaneous, phasic, competent and demonstrates normal competent and demonstrates normal augmentation. augmentation. POP V is compressible, spontaneous, phasic, POP V is compressible, spontaneous, phasic, competent and demonstrates normal competent and demonstrates normal augmentation. augmentation. T/P Trunk is compressible. T/P Trunk is compressible. PTV is compressible. PTV is compressible. RT PerV is compressible. LT PerV is compressible. Procedure Exam performed in department. A preliminary report was called and/or faxed to [facility]. Interpretation Summary Deep veins of the lower extremities are bilaterally patent and compressible segmentally. There is no evidence of deep vein thrombosis on either side. Valvular competence appears intact within the proximal deep venous systems bilaterally. The great saphenous veins appear bilaterally patent and compressible segmentally. Ordering Physician: Marta Bautista Referring Physician: LISA MENENDEZ Performed By: [place], EUGENE, RVT
--- NOTE | 2019-05-25 08:00 | CDU_ITS ---
Reason For Study: Dizziness Rt. Velocities/BP Lt. Velocities/BP Prox CCA 143/24 cm/sec. Prox CCA 132/24 cm/sec. Mid CCA 128/35 cm/sec. Mid CCA 141/30 cm/sec. Dist CCA 117/30 cm/sec. Dist CCA 116/28 cm/sec. Prox ICA 94/28 cm/sec. Prox ICA 112/22 cm/sec. Mid ICA 90/32 cm/sec. Mid ICA 83/28 cm/sec. Dist ICA 110/44 cm/sec. Dist ICA 85/35 cm/sec. Rt. ICA/CCA = .8. Lt. ICA/CCA = .8. Prox ECA 101/12 cm/sec. Prox ECA 125/13 cm/sec. Rt. Vert. 81/10 cm/sec. Lt. Vert. 90/19 cm/sec. Right Extracranial There is intimal thickening but no significant atherosclerotic plaque noted in the right common carotid artery. There is intimal thickening but no significant atherosclerotic plaque noted in the right internal carotid artery. There is no significant atherosclerotic plaque noted in the right external carotid artery. Antegrade flow is noted in the right vertebral artery. Left Extracranial There is intimal thickening but no significant atherosclerotic plaque noted in the left common carotid artery. There is intimal thickening but no significant atherosclerotic plaque noted in the left internal carotid artery. There is no significant atherosclerotic plaque noted in the left external carotid artery. Antegrade flow is noted in the left vertebral artery. Procedure Carotid Duplex 19886. Exam performed in department. Interpretation Summary No significant atherosclerotic plaque or stenosis noted in the internal carotid arteries bilaterally. Flow within the vertebral arteries is antegrade bilaterally. Ordering Physician: Marta Bautista Referring Physician: Cedrick Muñoz Performed By: [place], MARKUSCS, RVT
== END ==
PROVIDERS: Family Provider Student in an Organized Health Care Education/Training Program; PCP Student in an Organized Health Care Education/Training Program; Referring Provider Chiropractor; Visit Provider Chiropractor
DX: M79.606 Pain in leg, unspecified (principal); R42 Dizziness and giddiness
CPT/HCPCS: 93880; 93970

== ENCOUNTER → 2019-06-15 10:31 | Outpatient (CLI) | payer OTHER, SELFPAY ==
[2018-07-17 16:44] VITALS: BMI 22.6
--- NOTE | 2019-06-15 10:45 | MRI_ITS ---
STUDY: MRI BRAIN WITHOUT CONTRAST REASON FOR EXAM: Female, 38 years old. ataxia,syncope,, pressure left adventism TECHNIQUE: Standardized multiplanar fat and water weighted pulse sequences were obtained. COMPARISON: CT 01/30/2004 FINDINGS: Normal size of the ventricles and extra-axial spaces for the patient''s age. Normal white matter tracts of the supratentorial brain. There is no evidence for recent intracranial ischemia or other cause of cytotoxic edema on diffusion weighted imaging (DWI). Normal T2* images of the brain without demonstrated susceptibility artifact. There is no demonstrated hemosiderin stain. Normal bilateral basal ganglia. Normal thalami. There is no extra-axial fluid accumulation. Normal flow voids within the major intracranial circulation suggesting patency by spin echo criteria. Normal sella turcica, pituitary gland, infundibular stalk, optic chiasm and hypothalamus. Normal tectal plate and pineal gland. Normal midbrain, benjamín and medulla. Normal cerebellum. Normal basal cisterns. Normal bilateral temporal bones. Normal bilateral internal auditory canals. No demonstrated orbital abnormality, within the constraints of a routine brain study. Normal visualized paranasal sinuses. Normal calvarium and skull base. Normal visualized soft tissue structures. Normal visualized upper cervical spine. MRI/Brain without Contrast IMPRESSION: Normal unenhanced MRI of the brain. Electronically Signed: Robert Grubbs MD at 14:17 EST Tel , Service support ,
== END ==
PROVIDERS: Family Provider Student in an Organized Health Care Education/Training Program; PCP Student in an Organized Health Care Education/Training Program; Referring Provider Registered Nurse; Visit Provider Registered Nurse
DX: R55 Syncope and collapse (principal); R51 Headache; R42 Dizziness and giddiness
CPT/HCPCS: 70551

== ENCOUNTER → 2019-06-17 09:06 | Outpatient (CLI) | payer OTHER, SELFPAY ==
[2018-07-17 16:44] VITALS: BMI 22.6
--- NOTE | 2019-06-17 10:58 | PCM.TILTTABL ---
- Summary Pre Test Resting HR: 100 Pre Test Resting BP: 134/75 Minimum Test HR: 0 Maximum Test HR: 102 Minimum Test BP: 0/0 Maximum Test BP: 133/95 Reason for Test Termination: Syncope Physician Tilt Table Report - Patient's Physicians Primary Care Physician: Cedrick Jenkins Retail Coordinator: Luciano Guzmán Indications/Diagnosis: Syncope Procedure Comments: The patient was brought to the noninvasive lab in the postabsorptive state. Initial blood pressure was 134/75 mmHg and a heart rate of 100 bpm. The patient was then put in the 70 degree upright tilt table position. Approximately 6 minutes into the testing the patient started complaining of a clammy feeling and could feel her syncope coming on. Her eyes rolled back heart rate dropped and she became asystolic. The resting EKG demonstrated sinus rhythm with a rate of 87 bpm with a blood pressure 130/60 mmHg. The patient became asystolic fairly suddenly lasting approximately 16 seconds. There was then a period of approximately 6 seconds of polymorphic ventricular tachycardia interspersed by 2 episodes of sinus beats. CPR was started for approximately 5 seconds and patient became alert flushed in sinus rhythm resumed with sinus bradycardia and then culminating in normal sinus rhythm. Post procedure blood pressure was 122/69 with a heart rate of 62 bpm. Patient was noted to be neurologically and cardiovascularly stable. Summary: Abnormal tilt table test with asystole for approximately 16 seconds and an episode of polymorphic ventricular tachycardia. Recommend urgent follow-up with manufacturer's representative.
[2019-06-17 11:05] VITALS: BP 0/0; BP 133/95; BP 134/75
== END ==
PROVIDERS: Family Provider Student in an Organized Health Care Education/Training Program; PCP Student in an Organized Health Care Education/Training Program; Referring Provider Registered Nurse; Visit Provider Registered Nurse
DX: R42 Dizziness and giddiness (principal); R55 Syncope and collapse
CPT/HCPCS: 93660; J7040; A4216

== ENCOUNTER → 2019-07-29 | Outpatient (CLI) | payer OTHER, SELFPAY ==
[2019-06-25 09:11] VITALS: BMI 24.2
--- NOTE | 2019-07-29 09:53 | ECHOD_ITS ---
Reason For Study: PALPITATIONS Procedure This was a 2D Doppler, Color Flow transthoracic echocardiogram. The exam was of adequate technical quality. Exam performed in department. Left Ventricle Normal LV size. Mid cavitary false tendon noted. Left ventricular systolic function is normal. The estimated ejection fraction is 65 %. No evidence for diastolic dysfunction. No regional wall motion abnormalities noted. Right Ventricle Normal RV size. Normal systolic function. Atria Normal left atrium. Normal right atrium. No doppler evidence for ASD. Mitral Valve There is no mitral annular calcification. Normal mitral valve. Trivial mitral valve insufficiency. Tricuspid Valve Normal tricuspid valve. Trivial tricuspid valve insufficiency. Right ventricular systolic pressure estimated to be 30 mmHg. Aortic Valve Trisinus/trileaflet aortic valve. Normal aortic valve. Pulmonic Valve The pulmonic valve is not well visualized. Great Vessels Normal sized aortic root. Pericardium/Pleural No pericardial effusion. MMode/2D Measurements & Calculations LVIDd: 4.3 cm IVSd: 0.70 cm Ao root diam: 2.9 cm LVIDs: 2.7 cm LVPWd: 0.67 cm RVDd: 2.9 cm FS: 36.3 % LAV(MOD-bp): 22.1 ml LA A4 area: 10.1 cm2 LA dimension(2D): 2.5 cm LAV(MOD-bp) Indexed: 13.1 ml/m2 LAV(MOD-sp2): 23.1 ml LAV(MOD-sp4): 19.7 ml RA A4 area: 9.0 cm2 Time Measurements MV dec time: 0.20 sec Doppler Measurements & Calculations MV E max tone: 95.2 cm/sec Lat Peak E' Tone: 17.6 cm/sec Med Peak E' Tone: 13.9 cm/sec MV A max tone: 60.9 cm/sec E/E' lat: 5.4 E/E' med: 6.9 MV E/A: 1.6 Ao V2 max: 124.3 cm/sec LV V1 max: 109.3 cm/sec PA V2 max: 92.2 cm/sec Ao max P.2 mmHg LV V1 max P.8 mmHg TR max tone: 257.2 cm/sec TR max P.5 mmHg Interpretation Summary Left ventricular systolic function is normal. The estimated ejection fraction is 65 %. Mid cavitary false tendon noted. Trivial mitral valve insufficiency. Trivial tricuspid valve insufficiency. Right ventricular systolic pressure estimated to be 30 mmHg. No evidence for diastolic dysfunction. Ordering Physician: Luciano Guzmán Referring Physician: Cedrick Muñoz Performed By: Stacia De La Torre, EUGENE, RVT
== END | disposition home or self-care (01) ==
PROVIDERS: PCP Student in an Organized Health Care Education/Training Program; Referring Provider Internal Medicine Cardiovascular Disease; Visit Provider Internal Medicine Cardiovascular Disease
DX: R00.2 Palpitations (principal); R06.02 Shortness of breath; I47.2 Ventricular tachycardia
CPT/HCPCS: 93306

== ENCOUNTER → 2020-01-17 | Outpatient (CLI) | payer OTHER, SELFPAY ==
[2019-06-25 09:11] VITALS: BMI 24.2
--- NOTE | 2020-01-17 11:10 | MRI_ITS ---
STUDY: MRI CERVICAL SPINE WITHOUT CONTRAST REASON FOR EXAM: Female, 39 years old. pain neck and rt shoulder, arm x 2 weeks -- felt pop 4 weeks ago TECHNIQUE: Standardized fat and water weighted pulse sequences were obtained in the sagittal and axial planes. COMPARISON: None FINDINGS: Cervical straightening. No significant scoliosis. No abnormal cord signal. Vascular flow voids symmetric. No acute fracture. No dislocation. No bone destruction. No acute soft tissue process. Normal foramen magnum and brainstem-cervical cord junction. Normal craniovertebral junction. Normal anterior atlantoaxial articulation. Normal odontoid process. C2-3: Normal endplates. Normal disc height, signal and morphology. Normal central canal and intervertebral neural foramina. C3-4: Normal endplates. Normal disc height, signal and morphology. Normal central canal and intervertebral neural foramina. C4-5: Minimal endplate spondylosis. Shallow disc bulge. Normal central canal and intervertebral neural foramina. C5-6: Mild endplate spondylosis. Bilobed disc bulge without central canal narrowing. Moderate/severe bilateral neural foraminal narrowing. C6-7: Minimal endplate spondylosis. Right paracentral disc/osteophyte complex. Mild central canal narrowing. Severe right and moderate/severe left neural foraminal narrowing. C7-T1: Normal endplates. Shallow disc bulge. Normal central canal and intervertebral neural foramina. Mild facet arthrosis. 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
== END | disposition home or self-care (01) ==
LOC: MRI 11:02
PROVIDERS: PCP Student in an Organized Health Care Education/Training Program; Referring Provider Chiropractor; Visit Provider Chiropractor
DX: M99.01 Segmental and somatic dysfunction of cervical region (principal); M50.320 Other cervical disc degeneration, mid-cervical region, unspecified level
CPT/HCPCS: 72141